=== PATIENT | female | born 1950 | race Caucasian/White ===

== ENCOUNTER 2020-04-24 08:24 | Inpatient (IN) | payer MEDICARE, OTHER ==
[~2020-04-24] VITALS: Ht 165.1 cm; Wt 58.8 kg
[~2020-04-24 08:24] MED LIST: CYCL10 PO
[2020-04-24 08:54] LABS: BASOPHILS ABSOLUTE AUTO 0.02 K/mm3 (0.00-0.23); BASOPHILS PERCENT AUTO 0 % (0-2); EOSINOPHILS ABSOLUTE AUTO 0.03 K/mm3 (0.00-0.68); EOSINOPHILS PERCENT AUTO 0 % (0-6); Hematocrit 41.2 % (33.0-51.0); Hemoglobin 13.6 g/dL (11.5-16.0); IMMATURE GRAN ABSOLUTE AUTO 0.04 K/mm3 (0.00-0.10); IMMATURE GRAN PERCENT AUTO 0 % (0-1); LYMPHOCYTES ABSOLUTE AUTO 1.86 K/mm3 (0.84-5.20); LYMPHOCYTES PERCENT AUTO 18 % (21-46); MONOCYTES ABSOLUTE AUTO 0.73 K/mm3 (0.16-1.47); MONOCYTES PERCENT AUTO 7 % (4-13); Mean Corpuscular HGB 30.4 pg (26.0-34.0); Mean Corpuscular Volume 92 fL (80-100); Mean Platelet Volume 9.6 fL (9.1-12.4); NEUTROPHILS ABSOLUTE AUTO 7.84 K/mm3 (1.96-9.15); NEUTROPHILS PERCENT AUTO 75 % (41-73); Platelet Count 282 K/mm3 (150-400); RDW Coefficient Variation 12.2 % (11.7-14.2); RDW Standard Deviation 41.2 fL (35.1-46.3); Red Blood Cell Count 4.47 M/mm3 (3.80-5.20); White Blood Cell Count 10.52 K/mm3 (4.00-11.30)
[2020-04-24 09:05] LABS: Calcium, Ionized (POC) 1.07 mmol/L (1.10-1.46); Chloride (POC) 104 mmol/L (98-108); Creatinine (POC) 0.6 mg/dL (0.6-1.0); Glucose (ISTAT POC) 194 mg/dL (70-99); Hemoglobin (POC) 13.9 g/dL (12.0-16.0); Potassium (POC) 3.3 mmol/L (3.5-5.5); Sodium (POC) 139 mmol/L (135-148); Total CO2 (POC) 22 mmol/L (21-32)
[2020-04-24 09:18] LABS: Alanine Aminotransfer (ALT/SGP 200 U/L (12-78); Albumin, Blood 3.6 g/dL (3.4-5.0); Albumin/Globulin Ratio 1.1 (0.8-1.8); Alk Phos 151 U/L (50-136); Anion Gap 7 mmol/L (6-16); Aspartate Aminotrans (AST/SGOT 437 U/L (12-37); Bilirubin, Total 0.8 mg/dL (0.1-1.0); Blood Urea Nitrogen 14 mg/dL (8-24); CO2, Blood 27 mmol/L (21-32); Calcium, Blood 9.2 mg/dL (8.5-10.1); Chloride, Blood 107 mmol/L (98-108); Creatinine, Blood 0.64 mg/dL (0.40-1.00); Globulin, Blood 3.4 g/dL (2.2-4.0); Glomerular Filtration Rate >60 (60-); Glucose, Blood 186 mg/dL (70-99); Potassium, Blood 3.3 mmol/L (3.5-5.5); Sodium, Blood 141 mmol/L (136-145); Troponin I <0.015 ng/mL (0.000-0.040)
--- NOTE | 2020-04-24 17:06 | NUR ---
summary RESTING IN BED, DENIES ANY NEED FOR PAIN MEDS AT THIS TIME, BOWEL REST TODAY PER DR. GÓMEZ, DR. MILNER TO SEE PT IN AM, NO ACUTE CHANGES THIS SHIFT.
[2020-04-25 04:08] LABS: BASOPHILS ABSOLUTE AUTO 0.01 K/mm3 (0.00-0.23); BASOPHILS PERCENT AUTO 0 % (0-2); EOSINOPHILS PERCENT AUTO 0 % (0-6); Hematocrit 41.6 % (33.0-51.0); Hemoglobin 13.3 g/dL (11.5-16.0); IMMATURE GRAN ABSOLUTE AUTO 0.02 K/mm3 (0.00-0.10); IMMATURE GRAN PERCENT AUTO 0 % (0-1); LYMPHOCYTES ABSOLUTE AUTO 0.94 K/mm3 (0.84-5.20); LYMPHOCYTES PERCENT AUTO 10 % (21-46); MONOCYTES ABSOLUTE AUTO 0.48 K/mm3 (0.16-1.47); MONOCYTES PERCENT AUTO 5 % (4-13); Mean Corpuscular HGB 29.8 pg (26.0-34.0); Mean Corpuscular Volume 93 fL (80-100); Mean Platelet Volume 9.4 fL (9.1-12.4); NEUTROPHILS ABSOLUTE AUTO 8.36 K/mm3 (1.96-9.15); NEUTROPHILS PERCENT AUTO 85 % (41-73); Platelet Count 255 K/mm3 (150-400); RDW Coefficient Variation 12.5 % (11.7-14.2); RDW Standard Deviation 43.1 fL (35.1-46.3); Red Blood Cell Count 4.47 M/mm3 (3.80-5.20); White Blood Cell Count 9.81 K/mm3 (4.00-11.30)
[2020-04-25 04:26] LABS: Alanine Aminotransfer (ALT/SGP 194 U/L (12-78); Alk Phos 138 U/L (50-136); Anion Gap 5 mmol/L (6-16); Aspartate Aminotrans (AST/SGOT 218 U/L (12-37); Bilirubin, Total 1.2 mg/dL (0.1-1.0); Blood Urea Nitrogen 14 mg/dL (8-24); Bun/Creatinine Ratio 22.2 (12.0-20.0); CO2, Blood 28 mmol/L (21-32); Calcium, Blood 8.3 mg/dL (8.5-10.1); Chloride, Blood 108 mmol/L (98-108); Creatinine, Blood 0.63 mg/dL (0.40-1.00); Glomerular Filtration Rate >60 (60-); Glucose, Blood 109 mg/dL (70-99); Magnesium, Blood 1.6 mg/dL (1.6-2.4); Phosphorus, Blood 3.3 mg/dL (2.5-4.9); Potassium, Blood 3.9 mmol/L (3.5-5.5); Sodium, Blood 141 mmol/L (136-145)
--- NOTE | 2020-04-25 04:45 | NUR ---
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 PT IS AOX4. VSS. PT HAD LOW GRADE FEVER OF 99 YESTERDAY, THIS MORNING TEMP WAS 100.2 AT 4AM. PT DENIES CP/PRESSURE, NUMBNESS, TINGLING AND DIZZINESS. PT REPORTS HARD TO TAKE DEEP BREATHS DUE TO ABD PAIN SINCE YESTERDAY. PT IS NPO, EXPERIENCING NAUSEA ONLY AFTER ADMINS DILAUDID 1MG FOR PAIN. ZOFRAN ADMINSTERED. PT DENIES PASSING FLATUS BUT REPORTS BURPING. 18G POWERGLIDE WAS PUT IN LAST NIGHT BY ABHISHEK SHI. NO SIGNS OF INFILTRATION AND IV IS PATENT. URINE OUTPUT OF 150ML, IV INPUT TOTAL OF 915ML. PT WALKS STABLE WITH WALKER AND SBA. WAITING FOR DR. MILNER FOR CONSULT.
--- NOTE | 2020-04-25 06:32 | NUR ---
TEMP: PT TEMP ELEVATED TO 101.1 THIS AM. ROOM TEMP REDUCED, COOL CLOTH APPLIED TO FOREHEAD. CALL PLACED TO MD FOR UPDATE/ORDERS; AWAITING CALL BACK.
--- NOTE | 2020-04-25 06:35 | NUR ---
TEMPERATURE ELEVATED PT TEMPERATURE ELEVATED FROM 99F LAST NIGHT TO 101.1F THIS MORNING AT 0630. COLD WASH CLOTH APPLIED AND ADJUST ROOM TEMP. I WILL NOTIFY DR, AND REQUEST FOR MEDICATION. PT REPORTS PAIN IS BETTER 3/10.
--- NOTE | 2020-04-25 09:54 | NUR ---
PATIENT GAVE THIS STUDENT NURSE PERMISSION TO PROVIDE CARE ON 04/25/2020
--- NOTE | 2020-04-25 16:59 | NUR ---
SHIFT SUMMARY PT A&OX4, VSS, PLAN FOR NPO AT MIDNIGHT/POSS SURGERY TOMORROW. PAIN MANAGED WITH 0.5 MG DILAUDID. NAUSEA TREATED WITH ZOFRAN. SBA TO BRP. VOIDING WELL. IVF AND ABX SCHEDULED. WILL REPORT TO MIKO WEISS.
[2020-04-26 05:06] LABS: BASOPHILS ABSOLUTE AUTO 0.02 K/mm3 (0.00-0.23); BASOPHILS PERCENT AUTO 0 % (0-2); EOSINOPHILS PERCENT AUTO 0 % (0-6); Hematocrit 39.5 % (33.0-51.0); Hemoglobin 12.7 g/dL (11.5-16.0); IMMATURE GRAN ABSOLUTE AUTO 0.03 K/mm3 (0.00-0.10); IMMATURE GRAN PERCENT AUTO 0 % (0-1); LYMPHOCYTES ABSOLUTE AUTO 0.68 K/mm3 (0.84-5.20); LYMPHOCYTES PERCENT AUTO 6 % (21-46); MONOCYTES ABSOLUTE AUTO 0.63 K/mm3 (0.16-1.47); MONOCYTES PERCENT AUTO 6 % (4-13); Mean Corpuscular HGB Conc 32.2 g/dL (31.5-36.5); Mean Corpuscular Volume 93 fL (80-100); Mean Platelet Volume 10.5 fL (9.1-12.4); NEUTROPHILS ABSOLUTE AUTO 9.43 K/mm3 (1.96-9.15); NEUTROPHILS PERCENT AUTO 87 % (41-73); Platelet Count 230 K/mm3 (150-400); RDW Coefficient Variation 12.9 % (11.7-14.2); RDW Standard Deviation 44.3 fL (35.1-46.3); Red Blood Cell Count 4.24 M/mm3 (3.80-5.20); White Blood Cell Count 10.79 K/mm3 (4.00-11.30)
--- NOTE | 2020-04-26 05:14 | NUR ---
SHIFT SUMMARY PT A/O X4. SBA TO BATHROOM. PAIN MANAGED WITH IV DILAUDED PER ORDERS. ALSO HAS NEEDED ZOFRAN PRN FOR NAUSEA. O2 SATURATION ON RA DROPPING TO 88-90% AFTER DILAUDED; PT PLACED ON 2L O2 NC TO MAINTAIN O2 SAT ABOVE 92%. BIOX IN PLACE. PT HAS BEEN ANXIOUS ABOUT GOING TO SURGERY; EDUCATION PROVIDED. RESTING IN BED AT THIS TIME, CALL LIGHT IN PLACE.
[2020-04-26 05:24] LABS: BAND PERCENT MAN 13 % (0-8); BASOPHILS PERCENT MAN 0 % (0-2); EOSINOPHILS PERCENT MAN 0 % (0-6); LYMPHOCYTES ABSOLUTE MAN 0.64 K/mm3 (0.84-5.20); LYMPHOCYTES PERCENT MAN 6 % (21-46); METAMYELOCYTE PERCENT MAN 1 % (0-0); MONOCYTES ABSOLUTE MAN 0.21 K/mm3 (0.16-1.47); MONOCYTES PERCENT MAN 2 % (4-13); NEUTROPHILS ABSOLUTE MAN 9.81 K/mm3 (1.96-9.15); SEG NEUTROPHILS PERCENT MAN 78 % (41-73); TOTAL CELLS COUNTED 100
[2020-04-26 05:30] LABS: Alanine Aminotransfer (ALT/SGP 116 U/L (12-78); Albumin, Blood 2.4 g/dL (3.4-5.0); Albumin/Globulin Ratio 0.7 (0.8-1.8); Alk Phos 180 U/L (50-136); Anion Gap 5 mmol/L (6-16); Aspartate Aminotrans (AST/SGOT 99 U/L (12-37); Bilirubin, Total 2.9 mg/dL (0.1-1.0); Blood Urea Nitrogen 19 mg/dL (8-24); Bun/Creatinine Ratio 24.1 (12.0-20.0); CO2, Blood 28 mmol/L (21-32); Calcium, Blood 8.1 mg/dL (8.5-10.1); Chloride, Blood 106 mmol/L (98-108); Creatinine, Blood 0.79 mg/dL (0.40-1.00); Globulin, Blood 3.3 g/dL (2.2-4.0); Glomerular Filtration Rate >60 (60-); Glucose, Blood 109 mg/dL (70-99); Potassium, Blood 4.7 mmol/L (3.5-5.5); Sodium, Blood 139 mmol/L (136-145); Total Protein, Blood 5.7 g/dL (6.4-8.2)
--- NOTE | 2020-04-26 11:35 | NUR ---
PT TO DAY SURGERY AT APPROX 1125.
--- NOTE | 2020-04-26 11:39 | NUR ---
History, Chart, Medications and Allergies reviewed before start of procedure. Lungs clear T/O to Auscultation. Pre-Op teaching done. Pt verbalizes understanding.
--- NOTE | 2020-04-26 11:57 | NUR ---
MEDICATED PER DR HASSAN, ANESTHESIOLOGIST FOR ABD PAIN PRIOR TO SURGERY. FENTANYL 50MCG IV GIVEN. O2 2L/NC PLACED DUE TO SHALLOW BREATHING, SATS 88-90%. CONTINUE TO MONITOR.
--- NOTE | 2020-04-26 14:43 | NUR ---
04/26/20 1443 Janet Early VERIFICATIONS: EDIT CHART.
--- NOTE | 2020-04-26 17:42 | NUR ---
PT ARRIVED FROM PACU @ 1550, SETTLED BACK INTO ROOM, INCISIONS ASSESSED TO BE DRY AND INTACT, SLEEPY BUT ROUSABLE, DENIES PAIN, FLUIDS RUNNIGN AT 125ML/HR, POST OP VITALS STARTED AND STABLE. CALL LIGHT IN REACH, BED IN LOW POSTION
--- NOTE | 2020-04-26 17:45 | NUR ---
SHIFT SUMMARY DANELLE THAKKAR POD0, ARRIVED FROM PACU @ 1550, POST OP VITALS STABLE W/ LOW GRADE FEVER OF 99.3, GAVE AND EDUCATED ON IS USE, EDU&ENC TCDB, O2 SAT STABLE AND INCREASING TO 95%, TITRATING DOWN O2 VIA NC, DENIED PAIN @ ARRIVAL FROM PACU, REPORTS 4/10 ON 0-10 SCALE, MEDICATED PER EMAR, TOLERATING PO FLUID ON CLEAR FLUID VEGETARIAN DIET. AT BEDSIDE, CALL LIGHT IN REACH, WILL CONTINUE TO MONITOR AND REPORT TO ONCOMING NOC RN.
[2020-04-27 06:11] LABS: BASOPHILS ABSOLUTE AUTO 0.04 K/mm3 (0.00-0.23); BASOPHILS PERCENT AUTO 1 % (0-2); Hematocrit 35.8 % (33.0-51.0); Hemoglobin 11.5 g/dL (11.5-16.0); LYMPHOCYTES ABSOLUTE AUTO 1.09 K/mm3 (0.84-5.20); LYMPHOCYTES PERCENT AUTO 14 % (21-46); MONOCYTES ABSOLUTE AUTO 0.63 K/mm3 (0.16-1.47); MONOCYTES PERCENT AUTO 8 % (4-13); Mean Corpuscular HGB 30.4 pg (26.0-34.0); Mean Corpuscular HGB Conc 32.1 g/dL (31.5-36.5); Mean Corpuscular Volume 95 fL (80-100); Mean Platelet Volume 9.8 fL (9.1-12.4); Platelet Count 191 K/mm3 (150-400); RDW Coefficient Variation 12.8 % (11.7-14.2); RDW Standard Deviation 44.4 fL (35.1-46.3); Red Blood Cell Count 3.78 M/mm3 (3.80-5.20); White Blood Cell Count 7.93 K/mm3 (4.00-11.30)
[2020-04-27 06:13] LABS: EOSINOPHILS ABSOLUTE AUTO 0.11 K/mm3 (0.00-0.68); EOSINOPHILS PERCENT AUTO 1 % (0-6); IMMATURE GRAN ABSOLUTE AUTO 0.03 K/mm3 (0.00-0.10); IMMATURE GRAN PERCENT AUTO 0 % (0-1); NEUTROPHILS ABSOLUTE AUTO 6.03 K/mm3 (1.96-9.15); NEUTROPHILS PERCENT AUTO 76 % (41-73)
[2020-04-27 06:24] LABS: Alanine Aminotransfer (ALT/SGP 83 U/L (12-78); Albumin, Blood 2.2 g/dL (3.4-5.0); Albumin/Globulin Ratio 0.7 (0.8-1.8); Alk Phos 135 U/L (50-136); Anion Gap 5 mmol/L (6-16); Aspartate Aminotrans (AST/SGOT 61 U/L (12-37); Bilirubin, Total 1.1 mg/dL (0.1-1.0); Blood Urea Nitrogen 17 mg/dL (8-24); CO2, Blood 29 mmol/L (21-32); Calcium, Blood 8.1 mg/dL (8.5-10.1); Chloride, Blood 106 mmol/L (98-108); Creatinine, Blood 0.71 mg/dL (0.40-1.00); Globulin, Blood 3.3 g/dL (2.2-4.0); Glomerular Filtration Rate >60 (60-); Glucose, Blood 93 mg/dL (70-99); Potassium, Blood 3.4 mmol/L (3.5-5.5); Sodium, Blood 140 mmol/L (136-145); Total Protein, Blood 5.5 g/dL (6.4-8.2)
--- NOTE | 2020-04-27 06:29 | NUR ---
SHIFT SUMMARY: PT POD#1 FOR LAP BIJAN. LAP SITES X3 C/D/I. PAIN BEING MANAGED WITH 1 NORCO PER EMAR. TITA IN RLQ ABD WITH TOTAL OUTPUT OF 195CC OF DARK RED/BROWN FLUID. DRG BEGINNING TO CLEAR UP THIS MORNING AND APPEARS TO BE SLIGHTLY ORANGE IN COLOR. DRESSING CHANGED AROUND TITA SITE ONCE. PT REMAINS ON 2LO2 VIA NC. ENC FREQ TO USE INCENTIVE SPIROMETER. PT ABLE TO DEMONSTRATE USE WITH A LOT OF EDUCATION. PT ALSO ENCOURAGED TO AMBULATE TO PROMOTE BOWEL MOTILITY. PT REPORTS BURPING, HOWEVER NOT PASSING FLATUS. IVF AND ABX INFUSING PER EMAR. PT FAUZIA CLR LIQ DIET. DENIES N/V. ONLY ABLE TO VOID TWICE THIS SHIFT.
--- NOTE | 2020-04-27 07:30 | NUR ---
PT SLEEPING WAKES TO VERBAL STIMULI REPORTS IMPROVED PAIN /10 NO FLATUS HYPO BT'S PT DID STATE SHE HAS MILD NAUSEA OFFERED NAUSEA MEDS DECLINED REQ GINGERALE ORDERED WILL COME WITH BREAKFAST
--- NOTE | 2020-04-27 10:15 | NUR ---
po norco given also emptied out sly drain cl light brown color 50 ml
--- NOTE | 2020-04-27 11:45 | NUR ---
phenergan 12.5 mg ivp given pt still having nausea no emesis belching dressing changed sat
--- NOTE | 2020-04-27 13:30 | NUR ---
dr rod by to see pt
--- NOTE | 2020-04-27 17:30 | NUR ---
sly dressing sat changed holding a seal encouraged pt to get oob and amb pt not wanting to amb in hallway but amb in the room
--- NOTE | 2020-04-27 18:15 | NUR ---
dr navarro by to see pt ok to adv diet per pt req
--- NOTE | 2020-04-28 05:15 | NUR ---
SHIFT SUMMARY: POD 2 LAP BIJAN PT IS ALERT AND ORIENTED X4 WHILE AWAKE. PT HAS BEEN ASLEEP MAJORITY OF THE SHIFT BUT IS EASILY AROUSABLE. PAIN HAS BEEN MANAGED WITH 2 NORCO AND TORADOL. SHE WANTED TO BE WOKEN UP FOR PAIN MEDS THROUGHOUT THE NIGHT TO "STAY ON TOP OF THE PAIN". TITA IN RLQ ABD HAS BEEN HAVING DARK BROWN OUTPUT. DRESSING IS C/D/I. PT IS ON 2L NC OF OXYGEN WHEN LAYING IN BED BUT IS >94% O2 SAT WHEN STANDING/WALKING. ENCOURAGING FREQUENT INCENTIVE SPIROMETER USE WHEN POSSIBLE. WAS ABLE TO HAVE PT WALK THE HALLWAY ONCE TONIGHT TO HELP PROMOTE BM ACTIVITY. PT HAS BEEN TOLERATING CLEAR LIQUID DIET. PT HAS BEEN ABLE TO VOID DURING SHIFT WITH ELLA COLORED URINE. SHE IS A SBA IN THE ROOM. PT IS CURRENTLY LAYING IN BED SLEEPING WITH CALL LIGHT IN REACH. THE PLAN IS TO ENCOURAGE MORE AMBULATION AND USE OF INSENTIVE SPIROMETER TO POSSIBLY BE D/C HOME.
[2020-04-28 06:44] LABS: Alanine Aminotransfer (ALT/SGP 58 U/L (12-78); Albumin, Blood 1.9 g/dL (3.4-5.0); Albumin/Globulin Ratio 0.6 (0.8-1.8); Alk Phos 131 U/L (50-136); Anion Gap 4 mmol/L (6-16); Aspartate Aminotrans (AST/SGOT 35 U/L (12-37); Bilirubin, Total 0.8 mg/dL (0.1-1.0); Blood Urea Nitrogen 13 mg/dL (8-24); CO2, Blood 29 mmol/L (21-32); Calcium, Blood 8.1 mg/dL (8.5-10.1); Chloride, Blood 109 mmol/L (98-108); Creatinine, Blood 0.62 mg/dL (0.40-1.00); Globulin, Blood 3.3 g/dL (2.2-4.0); Glomerular Filtration Rate >60 (60-); Glucose, Blood 91 mg/dL (70-99); Potassium, Blood 3.5 mmol/L (3.5-5.5); Sodium, Blood 142 mmol/L (136-145); Total Protein, Blood 5.2 g/dL (6.4-8.2)
--- NOTE | 2020-04-28 10:18 | NUR ---
SITTING ON THE SIDE OF THE BED, EATING BREAKFAST, REPORTS TOLERATING DIET FAIRLY WELL, DENIES ANY NAUSEA, REPORTS FEELING "BETTER" TODAY, CONT. TO MONITOR FOR ANY CHANGES, ENCOURAGE TO USE IS AND AMBULATE.
--- NOTE | 2020-04-28 18:13 | NUR ---
SUMMARY VSS, AMBULATED X2 TODAY, HAD LOOSE STOOLS TODAY, REPORTS PAIN IS "BETTER" WITH NORCO, DENIES ANY NAUSEA, STATES NOT MUCH APPETITE TODAY, ATE 20-40% OF MEALS TODAY, TITA CONT. TO DRAIN SEROUS DRAINAGE, NO ACUTE CHANGES THIS SHIFT.
--- NOTE | 2020-04-29 00:39 | NUR ---
HAVE EDUCATED PT ON THE SIDE EFFECTS OF NARCOTICS ESPECIALLY ABOUT DECREASED GI MOTILITY. PT SEEMS TO BE UNINTERESTED AND QUOTED "I WILL BE TALKING TO THE DOCTOR TOMORROW ASKING FOR THE TIME TO HAVE PAIN MEDS FAR APART FROM EACH OTHER". PT HAS CALL LIGHT WITHIN REACH.
--- NOTE | 2020-04-29 00:43 | NUR ---
CHANGED PT'S TITA DRESSING SINCE IT WAS SATURATED WITH SS OUTPUT.
--- NOTE | 2020-04-29 04:21 | NUR ---
SHIFT SUMMARY: POD 3 LAP BIJAN PT IS ALERT AND ORIENTED X4 WHILE AWAKE. SHE IS EASILY AROUSABLE IF NEEDED. VITAL SIGNS ARE WNL AND IS ON 2LO2 WHILE LAYING DOWN AND IS ON A BIOX. HOWEVER, WHEN AMBULATING SHE DOESN'T NEED THE O2. PT EVEN REPORTED AMBULATING "FEELS BETTER" FOR HER. SHE HAS HAD 2 LOOSE STOOLS LAST NIGHT THAT WERE BROWN. PAIN IS MANAGED WITH NORCO, TORADOL, AND TYLENOL. CHANGED TITA COVER ONCE DURING THE SHIFT AND EMPTIED TITA DRAIN IN RLQ. X3 STERI STRIPS ARE C/D/I. ENCOURAGING INSENTIVE SPIROMETER AND DEEP COUGHS. ALSO ENCOURAGED MORE AMBULATION AND EDUCATED ON SIDE EFFECTS OF NARCOTICS LIKE DECREASED GI MOTILITY. PT IS TOLERATING PO, VOIDING, AND IS PASSING GAS. CALL LIGHT IS WITHIN REACH. SHE IS ON TELE AND HAD SR @ 90 BPM. THE PLAN IS TO POSSIBLY BE D/C TODAY. THE PLAN IS TO POSSIBLY D/C TODAY IF PT IS STABLE.
--- NOTE | 2020-04-29 07:30 | NUR ---
DRESSING CHANGED TO TITA SITE SAT COLOR OPEN DIE INSPECTOR CL OAKES 25 ML EMPTIED FROM TITA DRAIN PT LS WITH COARSE EXP WHEEZE ENCOURAGE IS/TCDB AND AMB AND OOB IN CHAIR FOR MEALS AND DURING THE DAY
--- NOTE | 2020-04-29 10:34 | NUR ---
DR ORTIZ CALLED UPDATE GIVEN OK TO DISCHARGE LATER IF OK WITH SURGERY PT ON RA ENCOURAGED TO STAY OUT OF BED
--- NOTE | 2020-04-29 11:50 | NUR ---
dr navarro by to see pt sly removed discussed with pt discharging today pt on the fence will check back with pt re going home later
[2020-04-29] MEDS ORDERED: Norco 5-325 Ta1 EACH PO (12:12)
[2020-04-29] MEDS ORDERED: MIRALAX17 GM PO (12:13)
--- NOTE | 2020-04-29 13:10 | NUR ---
dr rod by to see pt
--- NOTE | 2020-04-29 16:39 | NUR ---
discharge instructions reviewed with pt and spouse pt's spouse filled rx earlier no acute changes pt had a shower new dressing applied to rlq abd
== END 2020-04-29 16:52 | disposition home or self-care (01) | DRG 417 ==
LOC: ER 08:24 → SURS 12:42
PROVIDERS: Emergency Medicine; Internal Medicine; Nurse Practitioner Acute Care; Surgery; ADMIT Family Medicine
PROC: BF14YZZ Fluoroscopy of Gallbladder, Bile Ducts and Pancreatic Ducts using Other Contrast (ICD-10-PCS; 2020-04-26)
PROC: 0FT44ZZ Resection of Gallbladder, Percutaneous Endoscopic Approach (ICD-10-PCS; principal; 2020-04-26 11:30)
DX: K80.00 Calculus of gallbladder with acute cholecystitis without obstruction (principal); K85.10 Biliary acute pancreatitis without necrosis or infection; R18.8 Other ascites; E87.6 Hypokalemia; R74.01 Elevation of levels of liver transaminase levels
CPT/HCPCS: 36415; 71045; 71275; 74175; 74300; 76705; 80047; 80053; 83690; 83735; 84100; 84484; 85014; 85025; 88304; 93005; 93010; 94762; 96361; 96374-59; 96375; 96376; 99285-25; A9270; A9270-GY; C1729; C9113; J0330; J1170; J1650; J1885; J2250; J2270; J2405; J2543; J2550; J2704; J2710; J2765; J3010; J3480; J7030; J7120; Q9967; U0004

== ENCOUNTER 2020-05-02 08:23 | Emergency (ER) | payer MEDICARE, OTHER ==
[~2020-05-02] VITALS: Ht 162.6 cm; Wt 56.7 kg
[~2020-05-02 08:23] MED LIST changes: +MIRALAX17 GM PO; +Norco 5-325 Ta1 EACH PO
[2020-05-02 09:48] LABS: Hematocrit 35.1 % (33.0-51.0); Hemoglobin 11.7 g/dL (11.5-16.0); Mean Corpuscular HGB 30.3 pg (26.0-34.0); Mean Corpuscular HGB Conc 33.3 g/dL (31.5-36.5); Mean Corpuscular Volume 91 fL (80-100); Mean Platelet Volume 9.4 fL (9.1-12.4); Platelet Count 520 K/mm3 (150-400); Red Blood Cell Count 3.86 M/mm3 (3.80-5.20); White Blood Cell Count 15.22 K/mm3 (4.00-11.30)
[2020-05-02 10:06] LABS: Alanine Aminotransfer (ALT/SGP 32 U/L (12-78); Albumin, Blood 2.1 g/dL (3.4-5.0); Albumin/Globulin Ratio 0.5 (0.8-1.8); Alk Phos 145 U/L (50-136); Anion Gap 7 mmol/L (6-16); Aspartate Aminotrans (AST/SGOT 22 U/L (12-37); Bilirubin, Total 0.3 mg/dL (0.1-1.0); Blood Urea Nitrogen 9 mg/dL (8-24); Bun/Creatinine Ratio 19.8 (12.0-20.0); CO2, Blood 27 mmol/L (21-32); Calcium, Blood 8.2 mg/dL (8.5-10.1); Chloride, Blood 103 mmol/L (98-108); Creatinine, Blood 0.46 mg/dL (0.40-1.00); Globulin, Blood 3.9 g/dL (2.2-4.0); Glomerular Filtration Rate >60 (60-); Glucose, Blood 127 mg/dL (70-99); Potassium, Blood 2.9 mmol/L (3.5-5.5); Sodium, Blood 137 mmol/L (136-145)
[2020-05-02 10:09] LABS: BAND PERCENT MAN 4 % (0-8); BASOPHILS PERCENT MAN 0 % (0-2); EOSINOPHILS PERCENT MAN 0 % (0-6); LYMPHOCYTES ABSOLUTE MAN 1.52 K/mm3 (0.84-5.20); LYMPHOCYTES PERCENT MAN 10 % (21-46); METAMYELOCYTE PERCENT MAN 4 % (0-0); MONOCYTES ABSOLUTE MAN 1.21 K/mm3 (0.16-1.47); MONOCYTES PERCENT MAN 8 % (4-13); NEUTROPHILS ABSOLUTE MAN 11.87 K/mm3 (1.96-9.15); SEG NEUTROPHILS PERCENT MAN 74 % (41-73); TOTAL CELLS COUNTED 100
[2020-05-02 11:22] LABS: Source, Urine Clean Catch
[2020-05-02 12:08] LABS: Bilirubin, Urine Neg (Neg); Blood, Urine 4+ (Neg); Glucose Qualitative, Urine 2+ (Neg); Ketones, Urine 3+ (Neg); Leukocyte Esterase, Urine Neg (Neg); Nitrite, Urine Neg (Neg); Protein, Urine 1+ (Neg); Specific Gravity, Urine 1.015 (1.003-1.022); Urobilinogen, Urine NORM (Normal)
[2020-05-02 12:28] LABS: Appearance, Urine Hazy (Clear); Color, Urine Yellow (P-Yellow)
[2020-05-02 12:33] LABS: Bacteria Mod /hpf; Squamous Epithelial Cells Rare /hpf (Few)
[2020-05-02] MEDS ORDERED: K-Dur10 MEQ PO (15:39)
[2020-05-02] MEDS ORDERED: ONDA4ODT MM (15:39)
== END 2020-05-02 17:12 | disposition home or self-care (01) ==
LOC: ER 08:23
PROVIDERS: Physician Assistant
DX: R19.7 Diarrhea, unspecified (principal)
CPT/HCPCS: 36415; 74177; 80053; 81001; 83690; 85025; 87077; 87086; 87186; 87493; 96361; 96365-59; 96366; 96375; 96376; 99284-25; A9270; J2001; J2405; J3010; J3480; J7030; J7050; Q9967

== ENCOUNTER → 2021-09-22 | Outpatient (CLI) | payer MEDICARE, OTHER ==
[~2021-09-22] MED LIST changes: +K-Dur10 MEQ PO; +ONDA4ODT MM
[2021-09-22 18:47] LABS: Creatinine Urine 33.5 mg/dL (27.00-270.00)
[2021-09-22 19:03] LABS: Calcium, Urine 7.8 mg/dL (< 17.5); Calcium, Urine Calculation 171.6 mg/24hrs (42.0-353.0)
== END | disposition home or self-care (01) ==
LOC: LAB 07:15 → LAB SHORT 07:15
PROVIDERS: Internal Medicine Endocrinology, Diabetes & Metabolism
DX: M81.0 Age-related osteoporosis without current pathological fracture (principal)
CPT/HCPCS: 81050; 82340; 82570

== ENCOUNTER → 2021-10-27 | Outpatient (CLI) | payer MEDICARE, OTHER ==
[2021-10-27 10:56] LABS: Alanine Aminotransfer (ALT/SGP 19 U/L (12-78); Albumin, Blood 3.7 g/dL (3.4-5.0); Albumin/Globulin Ratio 1.3 (0.8-1.8); Alk Phos 104 U/L (50-136); Anion Gap 4 mmol/L (6-16); Aspartate Aminotrans (AST/SGOT 15 U/L (12-37); Bilirubin, Total 0.5 mg/dL (0.1-1.0); Blood Urea Nitrogen 15 mg/dL (8-24); Bun/Creatinine Ratio 24.7 (12.0-20.0); CO2, Blood 31 mmol/L (21-32); Calcium, Blood 8.8 mg/dL (8.5-10.1); Chloride, Blood 107 mmol/L (98-108); Creatinine, Blood 0.61 mg/dL (0.40-1.00); Globulin, Blood 2.9 g/dL (2.2-4.0); Glomerular Filtration Rate >60 (60-); Glucose, Blood 96 mg/dL (70-99); Phosphorus, Blood 3.7 mg/dL (2.5-4.9); Potassium, Blood 4.5 mmol/L (3.5-5.5); Sodium, Blood 142 mmol/L (136-145); Total Protein, Blood 6.6 g/dL (6.4-8.2)
== END | disposition home or self-care (01) ==
LOC: LAB 09:43 → LAB SHORT 09:43
PROVIDERS: Internal Medicine Hematology & Oncology
DX: M81.0 Age-related osteoporosis without current pathological fracture (principal)
CPT/HCPCS: 80053; 84100

== ENCOUNTER 2024-10-26 05:27 | Day surgery (SDC) | payer MEDICARE, OTHER ==
[2024-10-26] MEDS ORDERED: ZOLEDRONIC ACID/MANNITOL-WATER 100 ML IV SCH (06:00)
[2024-10-26 11:10] VITALS: BP 128/74
[2024-10-26] MEDS ORDERED: ZOCOR20 MG PO (11:13)
[2024-10-26] MEDS ORDERED: CALCIUM 600 WI1 EAC1 PO (11:14)
[2024-10-26] MEDS ORDERED: VITAMIN D31000 UNI1 PO (11:15)
[2024-10-26] MEDS ORDERED: SELENIUM200 MC3 PO (11:15)
== END 2024-10-26 11:36 | disposition home or self-care (01) ==
LOC: ATC 05:27
DX: M81.0 Age-related osteoporosis without current pathological fracture (principal); E78.00 Pure hypercholesterolemia, unspecified; Z79.899 Other long term (current) drug therapy
CPT/HCPCS: 96374; J3489